=== PATIENT | female | born 1975 | race American Indian/Alaskan Native ===

== ENCOUNTER 2025-07-28 14:59 | Emergency (ER) | payer MEDICAID, OTHER | END 2025-07-28 15:07 | LOC: DL.ED 14:59 | DX: F10.120 Alcohol abuse with intoxication, uncomplicated (principal); Z88.8 Allergy status to other drugs, medicaments and biological substances; Y90.9 Presence of alcohol in blood, level not specified | CPT/HCPCS: 99284 ==